=== PATIENT | female | born 1965 | race Two or more races ===

== ENCOUNTER 2020-09-13 12:50 | Inpatient (IN) | payer MEDICAID, OTHER ==
[~2020-09-13] VITALS: Ht 160 cm; Wt 85.0 kg
[2020-09-13 14:30] LABS: Basophils # (auto) 0.1 10 ^3/uL (0-0.2); Eosinophils # (auto) 0.1 10 ^3/uL (0-0.8); Eosinophils % (auto) 0.7 % (0.0-7.0); Lymphocytes # (auto) 1.5 10 ^3/uL (0.4-5.4); Monocytes # (auto) 1.1 10 ^3/uL (0-1.3)
[2020-09-13 14:31] LABS: Basophils % (auto) 0.5 % (0.0-2.0); Hematocrit 35.7 % (36.0-46.0); Lymphocytes % (auto) 10.5 % (10.0-50.0); Mean Corpuscular Hemoglobin 28.7 pg (28.0-32.0); Mean Corpuscular Hgb Conc. 33.7 g/dL (32.0-36.0); Mean Corpuscular Volume 85.2 fL (80.0-100.0); Monocytes % (auto) 7.7 % (0.0-12.0); Neutrophils # (auto) 11.4 10 ^3/uL (1.6-8.6); Neutrophils % (auto) 80.6 % (37.0-80.0); Platelet Count (auto) 526 10^3/uL (140-450); Red Blood Cells 4.19 10^6/uL (4.0-5.20); Red Cell Distribution Width 14.3 % (11.8-14.3); White Blood Cell 14.1 10^3/uL (4.4-10.8)
[2020-09-13 14:41] LABS: INR 1.08 (0.9-1.15); Partial Thromboplastin Time 30.7 sec (23.0-31.2)
[2020-09-13 14:44] LABS: Albumin 2.3 g/dL (3.4-5.0); Anion Gap 5 (5-15); Blood Urea Nitrogen 17 mg/dL (7-18); Calcium 8.7 mg/dL (8.5-10.1); Carbon Dioxide 25 mmol/L (21-32); Chloride 110 mmol/L (98-107); Glucose 139 mg/dL (74-106); Magnesium 2.4 mg/dL (1.6-2.6); Potassium 3.1 mmol/L (3.5-5.1); Sodium 140 mmol/L (136-145)
[2020-09-13 14:51] LABS: Alanine Aminotransferase 16 U/L (13-56); Alkaline Phosphatase 133 U/L (45-117); Aspartate Aminotransferase 6 U/L (15-37); BUN/Creatinine Ratio 38.6; Bilirubin, Total 0.4 mg/dL (0.2-1.0); GFR African American 192 mL/min; GFR Non-African American 158 mL/min; Total Protein 7.1 g/dL (6.4-8.2)
[2020-09-13] MEDS ORDERED: ACETAMINOPHEN 325 MG TAB PO ONE (15:30)
[2020-09-13] MEDS ORDERED: POTASSIUM CHL 20 Meq TABLET PO ONE (15:30)
[2020-09-13] MEDS ORDERED: SODIUM CHLORIDE 0.9% 1,000 ML IV ONE ×2 (15:30→16:00)
[2020-09-13 15:54] LABS: Urine Bacteria NONE SEEN /hpf (None Seen); Urine Blood TRACE /uL (Negative); Urine Mucus FEW (None Seen); Urine WBC 6 /hpf (0 - 5)
[2020-09-13] MEDS ORDERED: ONDANSETRON HCL 4 MG/2 ML VIAL IV PRN (16:00)
[2020-09-13] MEDS ORDERED: NITROGLYCERIN 0.4 MG SL TAB SL PRN (16:00)
[2020-09-13] MEDS ORDERED: MORPHINE SULF INJ 2 MG/ML SYRINGE 1ML IV PRN (16:00)
[2020-09-13] MEDS: PIPERACILLIN-TAZOB 3.375GM 100 ML IV SCH (18:05)
[2020-09-13] MEDS ORDERED: RAMI10CA38 PO (18:39)
[2020-09-13] MEDS ORDERED: MULT-1055 PO (18:39)
[2020-09-13] MEDS ORDERED: BACL10TA PO (18:39)
[2020-09-13] MEDS ORDERED: FLUO40CA PO (18:39)
[2020-09-13] MEDS ORDERED: ATOR10TA52 PO (18:39)
[2020-09-13] MEDS ORDERED: AMLO5TAB15 PO (18:39)
[2020-09-13] MEDS ORDERED: ASPI-264 PO (18:39)
[2020-09-13] MEDS ORDERED: LACT10SO3 PO (18:39)
[2020-09-13] MEDS: ACETAMINOPHEN 500 MG TAB PO PRN (20:36)
[2020-09-13] MEDS ORDERED: LORazepam 2MG/ML-1ML VIAL IV PRN (20:45)
[2020-09-13 21:11] LABS: Folate (Folic Acid) 21.3 ng/mL (5.38-24)
[2020-09-13] MEDS: ATORVASTATIN 20 MG TAB PO SCH (22:01)
[2020-09-14] VITALS (7 sets, daily range): BP systolic 102–128; BP diastolic 52–77
[2020-09-14] MEDS: PIPERACILLIN-TAZOB 3.375GM 100 ML IV SCH ×4 (02:19→18:10)
[2020-09-14] MEDS: ASPirin-EC 81 mg tab PO SCH (09:54)
[2020-09-14] MEDS: FAMOTIDINE 20 MG TAB PO SCH (09:54)
[2020-09-14] MEDS: ENOXAPARIN SOD 40 MG/0.4 ML SYRINGE SC SCH (09:55)
[2020-09-14] MEDS: ACETAMINOPHEN 500 MG TAB PO PRN ×2 (09:55→20:02)
[2020-09-14 18:38] LABS: BUN/Creatinine Ratio 34.5; Calcium 8.3 mg/dL (8.5-10.1); Potassium 3.4 mmol/L (3.5-5.1)
[2020-09-14] MEDS: ATORVASTATIN 20 MG TAB PO SCH (22:42)
[2020-09-15] MEDS: PIPERACILLIN-TAZOB 3.375GM 100 ML IV SCH ×3 (00:16→12:00)
[2020-09-15 05:31] VITALS: BP 117/82
[2020-09-15 09:00] VITALS: BP 117/82
[2020-09-15] MEDS: FAMOTIDINE 20 MG TAB PO SCH (10:27)
[2020-09-15] MEDS: ACETAMINOPHEN 500 MG TAB PO PRN ×2 (10:28→19:45)
[2020-09-15] MEDS: ENOXAPARIN SOD 40 MG/0.4 ML SYRINGE SC SCH (10:28)
[2020-09-15] MEDS: ASPirin-EC 81 mg tab PO SCH (10:28)
[2020-09-15 13:00] VITALS: BP 102/66
[2020-09-15 16:36] VITALS: BP 114/74
[2020-09-15] MEDS: ATORVASTATIN 20 MG TAB PO SCH (20:53)
[2020-09-15 21:02] VITALS: BP 131/82
[2020-09-16 05:15] VITALS: BP 118/82
[2020-09-16 08:00] VITALS: BP 118/82
[2020-09-16 09:00] VITALS: BP 138/63
[2020-09-16] MEDS: ENOXAPARIN SOD 40 MG/0.4 ML SYRINGE SC SCH (09:56)
[2020-09-16] MEDS: ASPirin-EC 81 mg tab PO SCH (09:56)
[2020-09-16] MEDS: FAMOTIDINE 20 MG TAB PO SCH (09:56)
[2020-09-16] MEDS ORDERED: levoFLOXacin 500 MG TAB PO SCH (10:00)
[2020-09-16 13:00] VITALS: BP 121/95
[2020-09-16 13:38] VITALS: BP 118/82
== END 2020-09-16 17:20 | DRG 45 ==
LOC: ER 12:50 → EDBD 12:50 → TELE 15:51 → TELE-CENTR 09-14 02:42
PROVIDERS: ADMIT Hospitalist; ATTEND Hospitalist
DX: I63.9 Cerebral infarction, unspecified (principal); R62.7 Adult failure to thrive; E87.6 Hypokalemia; I10 Essential (primary) hypertension; Z20.828 Contact with and (suspected) exposure to other viral communicable diseases; Z79.82 Long term (current) use of aspirin; E78.5 Hyperlipidemia, unspecified; Z79.899 Other long term (current) drug therapy; Z82.49 Family history of ischemic heart disease and other diseases of the circulatory system; Z87.440 Personal history of urinary (tract) infections; Z98.2 Presence of cerebrospinal fluid drainage device; N39.0 Urinary tract infection, site not specified; Z83.3 Family history of diabetes mellitus; F32.9 Major depressive disorder, single episode, unspecified; I80.9 Phlebitis and thrombophlebitis of unspecified site; I69.351 Hemiplegia and hemiparesis following cerebral infarction affecting right dominant side; G93.41 Metabolic encephalopathy
CPT/HCPCS: 36415; 51702; 70450; 71045; 73130; 80048; 80053; 81001; 82607; 82746; 83735; 84443; 84484; 85025; 85610; 85730; 87040; 87086; 87426; 87804; 93005; 93971; 95819; 96361; 96365; 96366; 97110; 97163; G0378; J2543